=== PATIENT | male | born 1980 ===

== ENCOUNTER 2016-04-23 07:01 | Emergency (ER) | payer BC ==
--- NOTE | 2016-04-23 07:20 | UC ---
Respiratory Complaint HPI - HPI Summary HPI Summary: cough x 10 days , + chest congestion , pnd, no fever, no chills - History of Current Complaint Chief Complaint: UCRespiratory Stated Complaint: CHEST CONGESTION Time Seen by Provider: 04/23/16 07:04 Hx Obtained From: Patient Onset/Duration: Gradual Onset Timing: Constant Severity Initially: Moderate Severity Currently: Moderate Character: Cough: Nonproductive Aggravating Factors: Exertion, Deep Breaths Alleviating Factors: Nothing Associated Signs And Symptoms: Positive: URI, Nasal Congestion. Negative: Dyspnea, Fever, Chills, Pleuritic Chest Pain, Wheezing, Hemoptysis, Dizziness, Calf Pain, Calf Swelling, Edema - Allergies/Home Medications Allergies/Adverse Reactions: Allergies Allergy/AdvReac Type Severity Reaction Status Date / Time No Known Allergies Allergy Verified 04/23/16 07:06 PMH/Surg Hx/FS Hx/Imm Hx Previously Healthy: Yes - Surgical History Surgical History: Yes Surgery Procedure, Year, and Place: HERNIA REPAIR, WISDOM TEETH EXTRACTED, COLONOSCOPY FOR RECTAL BLEEDING DX WITH HEMMORHOIDS AND GI PROBLEM 5 YEARS AGO - Family History Known Family History: Negative: Hypertension, Diabetes - Social History Alcohol Use: Rare Substance Use Type: None Smoking Status (MU): Former Smoker Type: Cigarettes When Did the Patient Quit Smoking/Using Tobacco: 10 YEARS AGO Review of Systems Constitutional: Negative Skin: Negative Eyes: Negative ENT: Nasal Discharge Respiratory: Cough Cardiovascular: Negative Gastrointestinal: Negative All Other Systems Reviewed And Are Negative: Yes Physical Exam Triage Information Reviewed: Yes Appearance: Well-Appearing, No Pain Distress, Well-Nourished Vital Signs: Initial Vital Signs Temp 98 F 04/23/16 07:07 Pulse 68 04/23/16 07:07 Resp 16 04/23/16 07:07 BP 113/74 04/23/16 07:07 Pulse Ox 98 04/23/16 07:07 Vital Signs Reviewed: Yes Eye Exam: Normal Eyes: Positive: Conjunctiva Clear ENT: Positive: Normal ENT inspection, Hearing grossly normal, Pharynx normal, Nasal congestion, Nasal drainage. Negative: Pharyngeal erythema Neck: Positive: Supple, Nontender, No Lymphadenopathy Respiratory Exam: Normal Respiratory: Positive: Chest non-tender, Lungs clear, Normal breath sounds Cardiovascular: Positive: RRR, No Murmur, Pulses Normal Skin Exam: Normal UC Diagnostic Evaluation - Laboratory O2 Sat by Pulse Oximetry: 98 Respiratory Course/Dx - Differential Dx/Diagnosis Provider Diagnoses: URI Discharge - Discharge Plan Condition: Stable Disposition: HOME Patient Education Materials: Upper Respiratory Infection (ED) Referrals: No Primary Care Phys,NOPCP [Primary Care Provider] - If Needed
[2016-04-23 07:23] VITALS: BP 113/74
== END 2016-04-23 07:28 | disposition home or self-care (01) ==
LOC: UCCORT 07:01
DX: J06.9 Acute upper respiratory infection, unspecified (principal); Z87.891 Personal history of nicotine dependence
CPT/HCPCS: 99211; G0463

== ENCOUNTER 2016-05-05 20:51 | Emergency (ER) | payer BC ==
[2016-05-05 21:37] VITALS: BP 125/69
[2016-05-05] MEDS ORDERED: ceFUROXime TAB(*) 250 MG PO ONE (21:58)
--- NOTE | 2016-05-05 22:04 | UC ---
Throat Pain/Nasal Paxton HPI - HPI Summary HPI Summary: This is an otherwise healthy 36 yo male who presents with a 2-3 week h/o of congestion with a new onset of ST that started ~3-4 days ago. Associated cough and occasional SOB. No fevers measured but frequently chilled. No facial pain. Some occasional feelings of vertigo. - History of Current Complaint Chief Complaint: UCGeneralIllness Stated Complaint: COUGH/SORE THROAT - Allergies/Home Medications Allergies/Adverse Reactions: Allergies Allergy/AdvReac Type Severity Reaction Status Date / Time No Known Allergies Allergy Verified 05/05/16 21:37 Home Medications: Home Medications Phenylephrine-Diphenhydramine- [MUCINEX FAST-MAX DAY/NIGH (Tablet)] 1,200 mg PO ONCE PRN 05/05/16 [History Confirmed 05/05/16] [id number] W/ APAP [Mucinex Sinus-Max Severe 7-15-215-325 mg] 1 cap PO ONCE PRN 05/05/16 [History Confirmed 05/05/16] PMH/Surg Hx/FS Hx/Imm Hx Previously Healthy: Yes - Surgical History Surgical History: Yes Surgery Procedure, Year, and Place: HERNIA REPAIR, WISDOM TEETH EXTRACTED, COLONOSCOPY FOR RECTAL BLEEDING DX WITH HEMMORHOIDS AND GI PROBLEM 5 YEARS AGO - Family History Known Family History: Positive: Cardiac Disease, Diabetes Negative: Hypertension - Social History Alcohol Use: Rare Substance Use Type: None Smoking Status (MU): Former Smoker Type: Cigarettes Length of Time of Smoking/Using Tobacco: 6 YRS Have You Smoked in the Last Year: No When Did the Patient Quit Smoking/Using Tobacco: 2006 Review of Systems Constitutional: Chills Skin: Negative Eyes: Negative ENT: Sore Throat, Nasal Discharge Respiratory: Cough Cardiovascular: Negative Gastrointestinal: Negative Genitourinary: Negative Motor: Negative Neurovascular: Negative Musculoskeletal: Negative Neurological: Negative Psychological: Negative All Other Systems Reviewed And Are Negative: Yes Physical Exam Triage Information Reviewed: Yes Appearance: Well-Nourished Vital Signs: Initial Vital Signs Temp 98 F 05/05/16 21:29 Pulse 58 05/05/16 21:29 Resp 12 05/05/16 21:29 BP 125/69 05/05/16 21:29 Pulse Ox 99 05/05/16 21:29 Vital Signs Reviewed: Yes ENT: Positive: Pharyngeal erythema - mild, Nasal congestion, TM dull. Negative : TM bulging, Tonsillar swelling, Tonsillar exudate Dental Exam: Normal Neck: Positive: Supple, Nontender, No Lymphadenopathy Respiratory: Positive: Chest non-tender, Lungs clear. Negative: Crackles, Rhonchi, Wheezing Cardiovascular: Positive: RRR, No Murmur Abdomen Description: Positive: Nontender Throat Pain/Nasal Course/Dx - Course Course Of Treatment: This is an otherwise healthy 36 yo gentleman who presents with complaints of congestion for several weeks and recent onset of ST with chills and cough. Will treat for sinusitis and recommend 10 days of antibiotics and initiation of steroid nasal spray. - Differential Dx/Diagnosis Differential Diagnosis/HQI/PQRI: Laryngitis, Peritonsillar Abscess, Pharyngitis , Tonsillitis, URI Provider Diagnoses: Acute sinusitis Discharge - Discharge Plan Condition: Stable Disposition: HOME Prescriptions: Cefuroxime Axetil [Ceftin 500 MG TAB] 500 mg PO BID #20 tab Fluticasone NASAL SPRAY 50MCG* [Flonase NASAL SPRAY 50MCG*] 1 spray BOTH NARES BID #1 btl Patient Education Materials: Sinusitis (ED) Referrals: Mervin Machuca DO [Primary Care Provider] - Additional Instructions: Activity: No restrictions Instructions: 1. Take antibiotics as directed 2. Use Flonase nasal spray as directed 3. Use Sudafed during daytime hours for additional congestion relief
== END 2016-05-05 22:13 | disposition home or self-care (01) ==
LOC: UCCORT 20:51
DX: J01.90 Acute sinusitis, unspecified (principal); Z87.891 Personal history of nicotine dependence
CPT/HCPCS: 99212; G0463

== ENCOUNTER 2016-12-11 07:31 | Emergency (ER) | payer BC ==
[2016-12-11 07:40] VITALS: BP 125/78
--- NOTE | 2016-12-11 08:00 | UC ---
Respiratory Complaint HPI - HPI Summary HPI Summary: This started with congestion, sore throat and fever about 4-5 days ago. It has progressed to cough which is keeping him up at night. No fever. The cough is productive at times. Mucinex is helping. - History of Current Complaint Chief Complaint: UCRespiratory Stated Complaint: HEAD AND CHEST CONGESTION Time Seen by Provider: 12/11/16 07:46 Hx Obtained From: Patient Onset/Duration: Gradual Onset, Lasting Days Timing: Constant Severity Initially: Moderate Severity Currently: Moderate Character: Cough: Productive Aggravating Factors: Deep Breaths, Recumbent Position Alleviating Factors: OTC Meds Associated Signs And Symptoms: Positive: URI, Nasal Congestion. Negative: Wheezing, Hemoptysis, Dizziness, Calf Pain, Calf Swelling - Allergies/Home Medications Allergies/Adverse Reactions: Allergies Allergy/AdvReac Type Severity Reaction Status Date / Time No Known Allergies Allergy Verified 12/11/16 07:37 PMH/Surg Hx/FS Hx/Imm Hx Previously Healthy: Yes - Surgical History Surgical History: Yes Surgery Procedure, Year, and Place: HERNIA REPAIR, WISDOM TEETH EXTRACTED, COLONOSCOPY FOR RECTAL BLEEDING DX WITH HEMMORHOIDS AND GI PROBLEM 5 YEARS AGO - Family History Known Family History: Positive: Cardiac Disease, Diabetes Negative: Hypertension - Social History Occupation: Employed Full-time Lives: With Family Alcohol Use: Occasionally Substance Use Type: None Smoking Status (MU): Former Smoker Type: Cigarettes Length of Time of Smoking/Using Tobacco: 6 YRS Have You Smoked in the Last Year: No When Did the Patient Quit Smoking/Using Tobacco: 2006 - Immunization History Most Recent Influenza Vaccination: Not the 2016/2017 Season Review of Systems Respiratory: Cough All Other Systems Reviewed And Are Negative: Yes Physical Exam Triage Information Reviewed: Yes Appearance: Well-Appearing, No Pain Distress, Well-Nourished Vital Signs: Initial Vital Signs Temp 98 F 12/11/16 07:36 Pulse 78 12/11/16 07:36 Resp 16 12/11/16 07:36 BP 125/78 12/11/16 07:36 Pulse Ox 99 12/11/16 07:36 Vital Signs Reviewed: Yes Eye Exam: Normal Eyes: Positive: Conjunctiva Clear ENT: Positive: Pharynx normal, Nasal congestion, TM bulging. Negative: Pharyngeal erythema, TM dull, TM red, Tonsillar swelling, Tonsillar exudate, Trismus Neck exam: Normal Neck: Positive: Supple, Nontender, No Lymphadenopathy Respiratory Exam: Normal Respiratory: Positive: Chest non-tender, Lungs clear, Normal breath sounds, No respiratory distress, No accessory muscle use. Negative: Respiratory distress Cardiovascular Exam: Normal Cardiovascular: Positive: RRR, No Murmur, Pulses Normal, Brisk Capillary Refill Abdominal Exam: Normal Abdomen Description: Positive: Nontender, No Organomegaly Musculoskeletal: Positive: Strength Intact, ROM Intact, No Edema Neurological: Positive: Alert, Muscle Tone Normal, Fatigued Skin: Negative: rashes UC Diagnostic Evaluation - Laboratory O2 Sat by Pulse Oximetry: 99 Respiratory Course/Dx - Differential Dx/Diagnosis Provider Diagnoses: chest cold. uri Discharge - Discharge Plan Condition: Good Disposition: HOME Prescriptions: Acetaminop/Codeine 30 MG TAB* [Tylenol/Codeine 30 MG TAB*] 1 tab PO Q8H PRN #10 tab MDD 2 PRN Reason: Cough Azithromyxin RADHA (NF) [Z-Radha (Zithromax) 250 mg tabs #6] 2 tab PO .TODAY, THEN 1 DAILY #6 tab Patient Education Materials: Upper Respiratory Infection (ED) Referrals: Mervin Machuca DO [Primary Care Provider] - If Needed
== END 2016-12-11 08:02 | disposition home or self-care (01) ==
LOC: UCCORT 07:31
DX: J06.9 Acute upper respiratory infection, unspecified (principal); Z87.891 Personal history of nicotine dependence
CPT/HCPCS: 99212; G0463

== ENCOUNTER 2017-05-18 21:27 | Emergency (ER) | payer BC ==
--- NOTE | 2017-05-18 21:47 | UC ---
Respiratory Complaint HPI - HPI Summary HPI Summary: 37 year old male with cough for 2 weeks. Was getting better last week and now worsening. To go to [place] in 1 week and wants to make sure he is not going to get worse. Has had productive cough throughout the day . No wheeze. No fever. No SOB. Some sinus pressure at times. No chest pain or pressure. - History of Current Complaint Stated Complaint: COUGH/CONGESTION Time Seen by Provider: 05/18/17 21:36 Hx Obtained From: Patient Onset/Duration: Gradual Onset Severity Initially: Mild Severity Currently: Moderate Character: Cough: Productive - Allergies/Home Medications Allergies/Adverse Reactions: Allergies Allergy/AdvReac Type Severity Reaction Status Date / Time No Known Allergies Allergy Verified 05/18/17 21:46 Home Medications: Home Medications GuaiFENesin DM* [Robitussin DM*] 5 ml PO Q6H PRN 05/18/17 [History Confirmed 06/30] Guaifenesin/Dextromethorphan [Mucinex Dm ER 600-30 mg Tablet] 1 each PO Q12H PRN 05/18/17 [History Confirmed 05/18/17] PMH/Surg Hx/FS Hx/Imm Hx Previously Healthy: Yes - Surgical History Surgical History: Yes Surgery Procedure, Year, and Place: HERNIA REPAIR, WISDOM TEETH EXTRACTED, COLONOSCOPY FOR RECTAL BLEEDING DX WITH HEMMORHOIDS AND GI PROBLEM 5 YEARS AGO - Family History Known Family History: Positive: Cardiac Disease, Diabetes Negative: Hypertension - Social History Occupation: Employed Full-time Lives: With Family Alcohol Use: Occasionally Substance Use Type: None Smoking Status (MU): Former Smoker Type: Cigarettes Length of Time of Smoking/Using Tobacco: 6 YRS Have You Smoked in the Last Year: No When Did the Patient Quit Smoking/Using Tobacco: 2006 - Immunization History Most Recent Influenza Vaccination: Not the 2017/2017 Season Review of Systems Constitutional: Fatigue ENT: Nasal Discharge, Sinus Congestion Respiratory: Cough Is Patient Immunocompromised?: No All Other Systems Reviewed And Are Negative: Yes Physical Exam Triage Information Reviewed: Yes Appearance: Well-Appearing, No Pain Distress, Well-Nourished Vital Signs Reviewed: Yes Eye Exam: Normal ENT Exam: Normal ENT: Positive: TM dull - right Dental Exam: Normal Neck exam: Normal Neck: Positive: 1 Respiratory Exam: Normal Cardiovascular Exam: Normal Musculoskeletal Exam: Normal Neurological Exam: Normal Psychological Exam: Normal Skin Exam: Normal Respiratory Course/Dx - Course Course Of Treatment: Supportive treatment at this time with flonase, Claritin D , cough suppresant and if symptoms worsen over the next 48-72 hours then start the antibiotics. - Differential Dx/Diagnosis Differential Diagnosis/HQI/PQRI: Bronchitis, Lower Resp Infection, Sinusitis Provider Diagnoses: URI Discharge - Sign-Out/Discharge Documenting (check all that apply): Discharge - Discharge Plan Condition: Good Disposition: HOME Prescriptions: Amoxicillin/Clavulanate TAB* [Augmentin TAB 875*] 875 mg PO BID 10 Days #20 tab Benzonatate CAP* [Tessalon 100 MG CAP*] 100 mg PO TID #20 cap Patient Education Materials: Upper Respiratory Infection (ED) Referrals: Mervin Machuca DO [Primary Care Provider] - 4 Days (if not better) Additional Instructions: At this time it appears you have a viral infection. Supportive treatment at this time will be advised with flonase, Claritin D, cough suppressant and if symptoms worsen over the next 48-72 hours then start the antibiotics. - Billing Disposition and Condition Condition: GOOD Disposition: HOME
[2017-05-18 21:51] VITALS: BP 130/82
== END 2017-05-18 21:55 | disposition home or self-care (01) ==
LOC: UCCORT 21:27
DX: J06.9 Acute upper respiratory infection, unspecified (principal); Z87.891 Personal history of nicotine dependence
CPT/HCPCS: 99212; G0463

== ENCOUNTER 2018-05-17 20:01 | Emergency (ER) | payer BC ==
[2018-05-17] MEDS ORDERED: Amoxicillin PO (*) 500 MG CAP PO ONE (20:21)
[2018-05-17 20:23] VITALS: BP 121/73
--- NOTE | 2018-05-17 20:31 | UC ---
Throat Pain/Nasal Paxton HPI - HPI Summary HPI Summary: patients son was positive for strep 4 days ago, patient has developed a sore throat, fever, upset stomach and headache. - History of Current Complaint Chief Complaint: UCRespiratory Stated Complaint: FEVER,ST,STOMACH ACHE,DIARRHEA Time Seen by Provider: 05/17/18 20:20 Hx Obtained From: Patient Onset/Duration: Sudden Onset, Lasting Days Severity: Moderate Pain Intensity: 5 Associated Signs & Symptoms: Positive: Dysphagia, Fever - Allergies/Home Medications Allergies/Adverse Reactions: Allergies Allergy/AdvReac Type Severity Reaction Status Date / Time No Known Allergies Allergy Verified 05/17/18 20:19 PMH/Surg Hx/FS Hx/Imm Hx Previously Healthy: Yes - Surgical History Surgical History: Yes Surgery Procedure, Year, and Place: HERNIA REPAIR, WISDOM TEETH EXTRACTED, COLONOSCOPY FOR RECTAL BLEEDING DX WITH HEMMORHOIDS AND GI PROBLEM 5 YEARS AGO. VASECTOMY - Family History Known Family History: Positive: Cardiac Disease, Diabetes Negative: Hypertension - Social History Alcohol Use: Occasionally Substance Use Type: None Smoking Status (MU): Former Smoker Type: Cigarettes Length of Time of Smoking/Using Tobacco: 6 YRS Have You Smoked in the Last Year: No When Did the Patient Quit Smoking/Using Tobacco: 2006 - Immunization History Most Recent Influenza Vaccination: Not the 2016/2017 Season Review of Systems All Other Systems Reviewed And Are Negative: Yes Constitutional: Positive: Fever Skin: Positive: Negative Eyes: Positive: Negative ENT: Positive: Sore Throat Respiratory: Positive: Cough Cardiovascular: Positive: Negative Gastrointestinal: Positive: Nausea Genitourinary: Positive: Negative Motor: Positive: Negative Neurovascular: Positive: Negative Musculoskeletal: Positive: Negative Neurological: Positive: Headache Psychological: Positive: Negative Is Patient Immunocompromised?: No Physical Exam Triage Information Reviewed: Yes Appearance: Well-Nourished, Ill-Appearing, Pain Distress Vital Signs: Initial Vital Signs Temp 98.4 F 05/17/18 20:19 Pulse 76 05/17/18 20:19 Resp 16 05/17/18 20:19 BP 121/73 05/17/18 20:19 Pulse Ox 99 05/17/18 20:19 Vital Signs Reviewed: Yes Eye Exam: Normal ENT: Positive: Pharyngeal erythema, Tonsillar swelling Dental Exam: Normal Neck exam: Normal Neck: Positive: Supple, Nontender, No Lymphadenopathy Respiratory Exam: Normal Respiratory: Positive: Chest non-tender, Lungs clear, Normal breath sounds Cardiovascular Exam: Normal Cardiovascular: Positive: RRR, No Murmur, Pulses Normal Abdominal Exam: Normal Abdomen Description: Positive: Nontender, No Organomegaly, Soft Musculoskeletal Exam: Normal Neurological Exam: Normal Psychological Exam: Normal Skin Exam: Normal Throat Pain/Nasal Course/Dx - Course Course Of Treatment: hx obtained, exam performed ,meds reviewed, treated for strep based on clinical presentation and exposure. - Differential Dx/Diagnosis Differential Diagnosis/HQI/PQRI: Influenza, Laryngitis, Pharyngitis, Sinusitis, URI Provider Diagnosis: Pharyngitis Discharge - Sign-Out/Discharge Documenting (check all that apply): Patient Departure All imaging exams completed and their final reports reviewed: No Studies - Discharge Plan Condition: Stable Disposition: HOME Prescriptions: Amoxicillin PO (*) [Amoxicillin 500 MG CAP*] 500 mg PO Q12H #20 cap Patient Education Materials: Pharyngitis (ED) Referrals: Mervin Machuca DO [Primary Care Provider] - Additional Instructions: 1. take the medication as prescribed. 2. increas fluids and get plenty of rest. - Billing Disposition and Condition Condition: STABLE Disposition: Home
== END 2018-05-17 20:28 | disposition home or self-care (01) ==
LOC: UCCORT 20:01
DX: J02.9 Acute pharyngitis, unspecified (principal); Z87.891 Personal history of nicotine dependence
CPT/HCPCS: 99212; A9270-GY; G0463

== ENCOUNTER 2018-06-30 20:59 | Emergency (ER) | payer BC ==
[2018-06-30 21:13] VITALS: BP 124/75
[2018-06-30] MEDS ORDERED: Benzonatate CAP* 100 MG PO ONE (21:21)
[2018-06-30] MEDS ORDERED: Azithromycin TAB* 250 MG PO ONE (21:21)
--- NOTE | 2018-06-30 21:26 | UC ---
FLU HPI - HPI Summary HPI Summary: 38-year-old male presents with 2 week history of nasal congestion, sinus pressure, sore throat, and a productive cough. States that his symptoms were improving slightly over the last 5 days have progressively worsened again. Associated with some mild shortness of breath and "chest burning" with coughing. Denies fever, chills, ear pain, dysphagia, nausea, or vomiting. - History of Current Complaint Chief Complaint: UCGeneralIllness Stated Complaint: COUGH,ST Time Seen by Provider: 06/30/18 21:14 Hx Obtained From: Patient Pain Intensity: 3 - Allergy/Home Medications Allergies/Adverse Reactions: Allergies Allergy/AdvReac Type Severity Reaction Status Date / Time No Known Allergies Allergy Verified 06/30/18 21:13 PMH/Surg Hx/FS Hx/Imm Hx Previously Healthy: Yes - Denies significant PMH - Surgical History Surgical History: Yes Surgery Procedure, Year, and Place: HERNIA REPAIR, WISDOM TEETH EXTRACTED, COLONOSCOPY FOR RECTAL BLEEDING DX WITH HEMMORHOIDS AND GI PROBLEM 5 YEARS AGO. VASECTOMY - Family History Known Family History: Positive: Cardiac Disease, Diabetes Negative: Hypertension - Social History Occupation: Employed Full-time Lives: With Family Alcohol Use: Occasionally Substance Use Type: None Smoking Status (MU): Former Smoker Type: Cigarettes Length of Time of Smoking/Using Tobacco: 6 YRS Have You Smoked in the Last Year: No When Did the Patient Quit Smoking/Using Tobacco: 2006 - Immunization History Most Recent Influenza Vaccination: Not the 2017/2017 Season Review of Systems All Other Systems Reviewed And Are Negative: Yes Constitutional: Negative: Fever, Chills Skin: Negative: Rash Eyes: Negative: Drainage, Eye Redness ENT: Positive: Sore Throat, Nasal Discharge, Sinus Congestion, Sinus Pain/ Tenderness. Negative: Ear Ache Respiratory: Positive: Shortness Of Breath, Cough Cardiovascular: Negative: Palpitations, Chest Pain Gastrointestinal: Negative: Abdominal Pain, Vomiting, Diarrhea, Nausea Genitourinary: Positive: Negative Musculoskeletal: Positive: Negative Neurological: Positive: Negative Is Patient Immunocompromised?: No Physical Exam - Summary Physical Exam Summary: GENERAL APPEARANCE: Well developed, well nourished, alert and cooperative, and appears to be in no acute distress. EYES: Conjunctiva clear. No drainage. EARS: External auditory canals and tympanic membranes clear, hearing grossly intact. NOSE: Mild-moderate nasal congestion. THROAT: Pharyngeal cobblestoning. No tonsilar inflammation, swelling, exudate, or lesions. Uvula midline. Oral cavity normal. Teeth and gingiva in good general condition. NECK: Neck supple, non-tender without lymphadenopathy. CARDIAC: Normal S1 and S2. No S3, S4 or murmurs. Rhythm is regular. There is no peripheral edema, cyanosis or pallor. Extremities are warm and well perfused. Capillary refill is less than 2 seconds. Peripheral pulses intact. LUNGS: Clear to auscultation without rales, rhonchi, wheezing or diminished breath sounds. Harsh, non-productive cough. ABDOMEN: Positive bowel sounds. Soft, nondistended, nontender. No guarding or rebound. No masses or hepatosplenomegally. MUSKULOSKELETAL: ROM intact to all extremities. No joint erythema or tenderness. Normal muscular development. Normal gait. SKIN: Skin normal color, texture and turgor with no lesions or eruptions. Triage Information Reviewed: Yes Vital Signs: Initial Vital Signs Temp 99.1 F 06/30/18 21:09 Pulse 81 06/30/18 21:09 Resp 16 06/30/18 21:09 BP 124/75 06/30/18 21:09 Pulse Ox 99 06/30/18 21:09 Vital Signs Reviewed: Yes Flu Course/Dx - Course Course Of Treatment: 38-year-old male presents with 2 week history of nasal congestion, sinus pressure, sore throat, and a productive cough. States that his symptoms were improving slightly over the last 5 days have progressively worsened again. Associated with some mild shortness of breath and "chest burning" with coughing. Denies fever, chills, ear pain, dysphagia, nausea, or vomiting. Afebrile. Vital signs stable. Exam reveals mild-moderate nasal congestion, pharyngeal cobblestoning, clear bilateral breath sounds, and a harsh, nonproductive cough. Considering the duration and worsening of his symptoms will treat with a course of azithromycin and recommend symptomatic treatment including Tessalon Perles one capsule every 8 hours as needed for cough. He was given first doses of each of these medications in the clinic. He is to follow-up with primary care provider in 3-5 days if symptoms are not improving. Anticipatory guidance and warning symptoms were reviewed with the patient. Verbalizes understanding and agrees with plan of care. - Differential Dx/Diagnosis Differential Diagnosis/HQI/PQRI: Bronchitis, Influenza, Pneumonia, Upper Respiratory Infection Provider Diagnosis: URI with cough and congestion Discharge - Sign-Out/Discharge Documenting (check all that apply): Patient Departure All imaging exams completed and their final reports reviewed: No Studies - Discharge Plan Condition: Stable Disposition: HOME Prescriptions: Azithromycin 250 mg PO DAILY #4 tablet Benzonatate CAP* [Tessalon 100 MG CAP*] 100 mg PO TID PRN #21 cap PRN Reason: Cough Patient Education Materials: Upper Respiratory Infection (ED) Referrals: Mervin Machuca DO [Primary Care Provider] - 3 Days Additional Instructions: Your symptoms are consistent with a upper respiratory infection. Considering the duration and worsening of your symptoms we will treat you with an antibiotic. Start azithromycin 1 tablet daily for 4 days starting tomorrow. You were given the first dose in the clinic. Get plenty of rest. Drink plenty of fluids. Take over the counter acetaminophen (Tylenol) or ibuprofen (Advil, Motrin) according to directions as needed for pain or fever. Use an over the counter decongestant such as Sudafed according to directions as needed for congestion. Take Tessalon Perles 1 cap every 8 hours as needed for cough. Your were given a dose in the clinic and sent home with one cap for in the morning. Use salt water gargles several times a day if you have a sore throat. You may also use Chloraseptic spray or Cepacol lonzenges according to directions which contain a numbing medication and can provide some temporary relief from your sore throat. Follow up with your primary care provider in 3-5 days if symptoms persist. Seek immediate medical attention in the emergency room if you have fever greater than 100.5 F despite taking acetaminophen or ibuprofen, have chest pain , difficulty breathing, are unable to swallow, or have any worsening of symptoms. - Billing Disposition and Condition Condition: STABLE Disposition: Home
== END 2018-06-30 21:50 | disposition home or self-care (01) ==
LOC: UCCORT 20:59
DX: J06.9 Acute upper respiratory infection, unspecified (principal); R05 Cough; R09.81 Nasal congestion; Z87.891 Personal history of nicotine dependence
CPT/HCPCS: 99212; A9270-GY; G0463

== ENCOUNTER 2018-07-24 21:34 | Emergency (ER) | payer BC ==
--- OUTSIDE RECORDS SUMMARY | 2018-07-24 21:39 | XMS REPORT | Continuity of Care Document ---
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 Unavailable Payers Date Identification Numbers Payment Provider Subscriber Effective: 2015 Policy Number: [id number] [employer]osa PayID: [id number] [address] [place] [address] Problems Active Problems Provider Date Hemorrhoids without complication Mervin Machuca DO Onset: 08/14/2014 Family History Date Family Member(s) Observation Comments Father Heart Disease V tach Father Hypertension Father Hypercholesterolemia Mother Diabetes, Adult Mother Obesity First Sister V tach Paternal Grandfather Heart Disease Maternal Uncles Diabetes, Adult Maternal Uncles Obesity Paternal Aunts Cancer, Skin Paternal Aunts Obesity Social History Type Date Description Comments Sex Unknown Education Higest level completed, Bachelor's Degree Marital Status 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 [employer] Tobacco Use Start: Unknown End: Former Cigarette Smoker Unknown ETOH Use consumes 2-3 beers per week Recreational Drug Use Denies Drug Use Allergies, Adverse Reactions, Alerts Description No Known Drug Allergies Medications Active Medications SIG Qnty Indications Ordering Provider Date No Active Medications Unknown 03/27/2017 History Medications Oseltamivir Phosphate 1 by mouth 10caps B34.9 Mervin Machuca, 03/22/2017 - twice a day DO 03/27/2017 75mg Capsules No Active Medications Unknown 08/14/2014 - 03/22/2017 Immunizations CPT Code Status Date Vaccine Lot # [id number] Refused 12/18/2017 Afluria Imunization Vital Signs Date Vital Result Comment 07/11/2018 1:37pm Body Temperature 99.0 F Weight 228.00 lb Heart Rate 70 /min BP Systolic 138 mmHg BP Diastolic 84 mmHg Respiratory Rate 17 /min Height 71 inches 5'11" O2 % BldC Oximetry 98 % BMI (Body Mass Index) 31.8 kg/m2 12/18/2017 4:18pm Weight 221.00 lb Heart Rate 78 /min BP Systolic 112 mmHg BP Diastolic 74 mmHg Height 71 inches 5'11" (10/2015) BMI (Body Mass Index) 30.8 kg/m2 10/30/2017 4:05pm Weight 225.00 lb Heart Rate 80 /min BP Systolic 116 mmHg BP Diastolic 78 mmHg Respiratory Rate 16 /min Height 71 inches 5'11" (10/2015) BMI (Body Mass Index) 31.4 kg/m2 03/22/2017 9:42am Body Temperature 99.5 F Weight 229.00 lb Heart Rate 84 /min BP Systolic 132 mmHg BP Diastolic 92 mmHg Respiratory Rate 17 /min Height 71 inches 5'11" (10/2015) O2 % BldC Oximetry 98 % BMI (Body Mass Index) 31.9 kg/m2 10/15/2015 11:45am Weight 216.00 lb Heart Rate 74 /min BP Systolic 134 mmHg BP Diastolic 84 mmHg Respiratory Rate 17 /min Height 71 inches 5'11" (10/2015) BMI (Body Mass Index) 30.1 kg/m2 12/25/2014 1:00pm Weight 211.00 lb Heart Rate 62 /min BP Systolic 120 mmHg BP Diastolic 74 mmHg Respiratory Rate 18 /min Height 70.6 inches 5'10.60" 08/14/14 BMI (Body Mass Index) 29.8 kg/m2 11/17/2014 3:24pm Weight 214.00 lb Heart Rate 60 /min BP Systolic 100 mmHg BP Diastolic 68 mmHg Respiratory Rate 18 /min Height 70.6 inches 5'10.60" 08/14/14 BMI (Body Mass Index) 30.2 kg/m2 11/03/2014 11:03am Body Temperature 98.1 F Weight 211.00 lb Heart Rate 76 /min BP Systolic 140 mmHg BP Diastolic 80 mmHg Respiratory Rate 18 /min Height 70.6 inches 5'10.60" 08/14/14 O2 % BldC Oximetry 99 % Ra BMI (Body Mass Index) 29.8 kg/m2 08/14/2014 2:15pm Weight 205.00 lb Heart Rate 72 /min BP Systolic 126 mmHg BP Diastolic 74 mmHg Respiratory Rate 18 /min Height 70.6 inches 5'10.60" 08/14/14 BMI (Body Mass Index) 28.9 kg/m2 Results Test Date Facility Test Result H/L Range Note Laboratory test 07/11/2018 [facility] Throat Culture <pending> finding Laboratory test 12/19/2017 [facility] CRP 1.05 mg/dL High 0.00-0.75 finding (C-Reactive) CBC with Auto 12/19/2017 [facility] WBC 6.4 K/uL 4.1-11.0 Diff-fcmg RBC 4.84 M/uL 4.60-6.10 Hemoglobin 14.0 gm/dL 13.5-18.0 Hematocrit 40.9 % Low 41.0-53.0 MCV 84.3 fL 80.0-97.0 MCH 29.0 pg 27.0-32.0 MCHC 34.4 g/dL 32.0-36.0 RDW 12.9 % 11.5-14.5 PLT Count 261 K/ul 140-400 MPV 8.3 FL 7.1-10.7 Neutrophil 65.7 % 35.0-75.0 Lymphocyte 20.4 % 16.0-52.0 Monocyte 10.7 % High 2.0-10.0 Eosinophil 2.0 % 0.0-5.0 Basophil 1.2 % 0.0-4.0 Abs Neutrophils 4.2 K/uL 2.1-8.0 Abs Lymphocytes 1.3 K/uL 0.8-5.5 Abs Monocytes 0.7 K/uL 0.1-1.0 Abs Eosinophils 0.1 K/uL 0.0-0.5 Abs Basophils 0.1 K/uL 0.0-0.3 Laboratory test 12/18/2017 [facility] Cytology Fluid SEE NOTE 1, 2 finding Specimen Blood Culture 12/10/2017 [facility] Blood Culture NO GROWTH: 3, 4 (315)- - Aerobic FINAL <SEE NOTE> Blood Culture Anaerobic NO GROWTH: FINAL <SEE NOTE> 5 Laboratory test finding 12/10/2017 [facility] Lipase 107 U/L N 56-289 6 (315)- - Troponin-I < 0.015 ng/mL 7 CK 165 U/L N 39-308 C-Reactive Protein,Quant 159.0 mg/L High <3.0 Comprehensive Metabolic 12/10/2017 [facility] Glucose 136 mg/dL High 74-106 Panel (315)- - BUN 9 mg/dL N 7-18 Creatinine 1.2 mg/dL N 0.6-1.3 Glom Filtration Rate, Estimate >60 mL/min >60 If >60 mL/min >60 8 BUN/Creat 7.5 ratio Sodium 137 mmol/L N 136-145 Potassium 3.5 mmol/L N 3.5-5.1 Chloride 104 mmol/L N 98-107 Carbon Dioxide 24 mmol/L N 21-32 Anion Gap 9 mEq/L N 8-16 Calcium 8.6 mg/dL N 8.5-10.1 Total Protein 7.4 g/dL N 6.4-8.2 Albumin 3.8 g/dL N 3.4-5.0 Globulin 3.6 g/dL N 1.9-4.3 Alb/Glob 1.1 ratio Bilirubin,Total 1.1 mg/dL High 0.2-1.0 Sgot/Ast 19 U/L N 15-37 SGPT/Alt 26 U/L N 12-78 Alkaline Phosphatase 48 U/L N 45-117 Laboratory test 12/10/2017 [facility] Act Partial 35.3 seconds High 23.4-35.0 9 finding (315)- - Thrombo Time Sedimentation Rate 3 mm/hr N 0-15 10 Protime 12/10/2017 [facility] Protime 14.2 seconds N 12.0-14.4 (315)- - Inr 1.1 N 0.9-1.1 11 CBS W/Automated Diff 12/10/2017 [facility] White Blood 7.7 K/uL N 3.4-10.5 (315)- - Count Red Blood Count 5.02 M/uL N 4.20-5.80 Hemoglobin 15.0 gm/dL N 12.8-17.0 Hematocrit 42.3 % N 38.0-48.0 Mean Cell Volume 84.3 fl N 80.0-96.0 Mean Corpuscular HGB 29.9 pg N 27.0-33.0 Mean Corpuscular HGB Conc 35.5 g/dL N 31.7-36.0 Platelet Count 165 K/uL N 155-360 Red Cell Distri Width SD 38.4 fl N 36-51 Red Cell Distri Width %CV 12.6 % N 11.6-15.8 Mean Platelet Volume 10.2 fL N 6.6-10.6 Neut% 80.6 % High 33.0-73.0 Lymph % 8.9 % Low 20.0-42.0 [place] % 9.8 % N 0.0-10.0 Eo% 0.4 % N 0.0-6.6 Bas% 0.3 % N 0.0-1.1 Neut# 6.24 K/uL N 1.8-7.0 Lymph # 0.69 K/uL Low 1.0-4.0 [place] # 0.76 K/uL N 0.0-0.8 Eos # 0.03 K/uL N 0.0-0.5 Baso # 0.02 K/uL N 0.0-0.1 Lactic Acid 12/10/[address] [facility] Lactic Acid 1.5 mmol/L N 0.4-1.9 (315)- - Lab Reflex >2.0 for Sepsis? Y Blood Culture 12/10/[address] [facility] Blood Culture NO GROWTH: 12, 13 (315)- - Aerobic FINAL <SEE NOTE> Blood Culture Anaerobic NO GROWTH: FINAL <SEE NOTE> 14 Stool Culture 12/10/[address] [facility] Stool Culture NO ENTERIC PATHO 15 (315)- - <SEE NOTE> . ................ <SEE NOTE> 16 Note: INCLUDES TESTING <SEE NOTE> 17 . PLESIOMONAS, CAM <SEE NOTE> 18 . ................ <SEE NOTE> 19 . YERSINIA AND VIB <SEE NOTE> 20 . SHOULD BE REQUES <SEE NOTE> 21 Shiga Toxin 1 Antigen Test not perform <SEE NOTE> 22 Shiga Toxin 2 Antigen Test not perform <SEE NOTE> 23 Laboratory test 12/10/[address] [facility] Urine Culture NO GROWTH: 24 finding (315)- - FINAL <SEE NOTE> Urinalysis With 12/10/[address] [facility] Urine Color YELLOW Yellow 25 Microscopic (315)- - Urine Clarity CLEAR Clear Urine Glucose - Dipstick NEGATIVE mg/dL Negative Urine Bilirubin - Dipstick NEGATIVE Negative Urine Ketone TRACE mg/dL High Negative Urine Specific [place] 1.020 N 1.010-1.030 Urine Blood LARGE Abnormal Negative Urine PH 6.0 Low 6.5-7.5 Urine Protein - Dipstick 30 mg/dL High Negative Urine Urobilinogen - Dipstick 0.2 E.U./dL N 0.2-1.0 Urine Nitrite - Dipstick NEGATIVE Negative Urine Leuk Esterase NEGATIVE Negative Urine RBC 10-20 rbc/hpf High 0-2 Urine WBC NONE SEEN wbc/hpf 0-7 Urine Epithelial Cells FEW /lpf None Seen Urine Bacteria FEW None Seen Source: URINE, CLEAN CAT <SEE NOTE> 26 Laboratory test 12/10/2017 [facility] Occult NEGATIVE Negative 27 finding (315)- - Blood,Stool Influenza A/B 12/10/[address] [facility] Influenza A Negative (Negative) Antigen (315)- - Antigen Influenza B Antigen Negative (Negative) 28 Aot Request 12/10/[address] [facility] Aot Request Test(s) added 29 (315)- - Tests to be added: CPK Laboratory 12/10/2017 [facility] Malarial (SEE NOTE) [ None Seen] 30, 31 test finding (315)- - Smear Hepatitis 12/10/2017 [facility] Hepatitis A Negative Negative Evaluation (315)- - Antibody IgM HBsAg Screen [Ref Lab] Negative Negative Hepatitis B Core IgM Negative Negative HCV Signal/Cutoff ratio < 0.1 s/corat 0.0-0.9 32 Laboratory test 11/03/2014 [facility] Troponin-I < 0.015 33 finding (315)- - ng/mL Laboratory test 11/03/2014 [facility] D-Dimer, < 0.22 34 finding (315)- - Quantitative ug/mL Basic (BMP) 09/03/2014 [facility] Sodium 139 mmol/L 134-14 2 Potassium 4.5 mmol/L 3.5-5.2 Chloride 104 mmol/L 97-109 Carbon Dioxide 31 mmol/L 24-34 Glucose 88 mg/dL 70-105 BUN 14 mg/dL 6- Creatinine 1.0 mg/dL 0.5-1.4 Calcium 9.6 mg/dL 8.5-10.2 Anion Gap 9 mmol/L 6-14 Non Frida Egfr >60 >60 35 Frida Egfr >60 >60 36 Lipid Treatment 09/03/2014 [facility] Cholesterol 157 mg/dL 50-199 Triglycerides 90 mg/dL 30-200 HDL 36 mg/dL 29-71 37 Chol/ HDL Ratio 4.4 ratio 4.0-6.7 VLDL 18 mg/dL 2-29 LDL (Calc) 103 mg/dL High 20-99 38 Alt 15 U/L 3-42 Ast 13 U/L 8-42 CBC With Auto Diff 09/03/2014 [facility] WBC 4.8 K/uL 4.1-11.0 RBC 5.10 M/uL 4.60-6.10 Hemoglobin 15.3 gm/dL 13.5-18.0 Hematocrit 44.1 % 41.0-53.0 MCV 86.5 fL 80.0-97.0 MCH 30.0 pg 27.0-32.0 MCHC 34.6 g/dL 32.0-36.0 RDW 13.1 % 11.5-14.5 PLT Count 184 K/ul 140-400 Neutrophil 54.9 % 35.0-75.0 Lymphocyte 30.3 % 16.0-52.0 Monocyte 10.2 % High 2.0-10.0 Eosinophil 3.5 % 0.0-5.0 Basophil 1.1 % 0.0-4.0 Abs Neutrophils 2.6 K/uL 2.1-8.0 Abs Lymphocytes 1.4 K/uL 0.8-5.5 Abmon 0.5 K/uL 0.1-1.0 Abs Eosinophils 0.2 K/uL 0.0-0.5 Abs Basophils 0.1 K/uL 0.0-0.3 1 microscopic hematuria after viral infection 2 [facility]. [address] [place] [address] MISCELLANEOUS CYTOLOGY REPORT Source of Specimen(s): A: LBP Urine Clinical Diagnosis and History: R31.9, microscopic hematuria after viral infection Gross Description LBP Urine: 15 cc cloudy yellow fluid. Final Diagnosis Specimen Adequacy Satisfactory Final Diagnosis URINE: NEGATIVE FOR HIGH-GRADE UROTHELIAL CARCINOMA The specimen contains some urothelial cells and background squamous cells. As applicable, positive and negative controls for all immunohistochemical and/or special stains were reviewed and considered appropriate. Reported: 12/19/2017 14:28 Electronically Signed Out By Сергей Chacko MD [facility] [employer] [facility] Project Manager: Rubi White CT([facility]) [facility] ICD Code: R31.9 CPT Code: A: 55551P Unless otherwise specified, testing performed by [facility] [place] [facility] [address] [place] [id number] 3 FEVER, DIARRHEA, HEMTURIA 4 NO GROWTH: FINAL REPORT 5 NO GROWTH: FINAL REPORT 6 FLU LIKE SYMPTOMS, RECENT TRAVELING 7 0.0 - 0.045 ng/mL: Normal 0.046 - 0.5 ng/mL: Suggestive 0.6 - 1.5 ng/mL: Consistent 8 Note: Persistent reduction for 3 months or more in an eGFR <60 mL/min/1.73 m2 defines CKD. Patients with eGFR values >/=60 mL/min/1.73 m2 may also have CKD if evidence of persistent proteinuria is present. The original MDRD equation for estimated GFR is not valid for patients less than 18 years of age. Additional information may be found at www.kdoqi.org. 9 Is patient on anticoagulants? Coumadin 10 Method: Sediplast Modified Westergren 11 THERAPEUTIC INR RANGE: 2.0 - 3.0 DVT, Pulmonary embolus, prophylaxis against venous thrombosis or systemic embolization in high risk patients. 2.5 - 3.5 Mechanical heart valves 12 FEVER, DIARRHEA, HEMTURIA 13 NO GROWTH: FINAL REPORT 14 NO GROWTH: FINAL REPORT 15 NO ENTERIC PATHOGENS ISOLATED 16 ................................................... 17 INCLUDES TESTING FOR SALMONELLA, SHIGELLA, AEROMONAS, 18 PLESIOMONAS, CAMPYLOBACTER, AND E. COLI 0157:H7 19 ................................................... 20 YERSINIA AND VIBRIO ARE NOT ROUTINELY SCREENED FOR AND 21 SHOULD BE REQUESTED SEPARATELY 22 Test not performed INSUFFICENT GROWTH TO PERFORM TESTING 23 Test not performed INSUFFICENT GROWTH TO PERFORM TESTING 24 NO GROWTH: FINAL REPORT 25 FLU LIKE SYMPTOMS, RECENT TRAVELING 26 URINE, CLEAN CATCH 27 Method: Sony Leonie Hemoccult Card 28 Please Note: A POSITIVE result for influenza A and/or B antigen does not rule out a co-infection with other pathogens or identify any specific influenza A virus subtype. A NEGATIVE result for influenza A and/or B antigen does not preclude influenza virus infection and should not be the sole basis for treatment or other management decisions, since the antigen present in the specimen may be below the detection limit of the test. A NEGATIVE result is PRESUMPTIVE and it is recommended these results be confirmed by virus culture or an FDA-cleared influenza A and B molecular assay. Method: [employer] Chromatographic immunoassay 29 Tests: CPK Instructions: 30 FEVER, DIARRHEA, HEMTURIA 31 No Plasmodium, Babesia, or other blood parasites seen. One negative result does not rule out the possibility of a parasitic infestation. If protozoal, filarial, or trypanosomal infection is strongly suspected, test should be performed at least three times with samples obtained at different times in the fever cycle. Performed at: [facility] [employer] [id number] Software Systems Engineer: Shakila Coles MD, Phone: [phone] INFCE Result Units: s/co ratio Negative: < 0.8 Indeterminate: 0.8 - 0.9 Positive: > 0.9 The CDC recommends that a positive HCV antibody result be followed up with a HCV Nucleic Acid Amplification test (501832). Performed at: [facility] [email or web address] [id number] Software Systems Engineer: Shakila Coles MD, Phone: [phone] 0.0 - 0.045 ng/mL: Normal 0.046 - 0.5 ng/mL: Suggestive 0.6 - 1.5 ng/mL: Consistent 34 <=0.49 ug/mL - Low likelihood of DIC, DVT or Pulmonary Embolism >0.49 ug/mL - Additional testing should be done to rule out DIC, DVT, or Pulmonary embolism as clinically indicated. ([facility] has established a 97.89% negative predictive value for thrombotic disease when a cutoff value of 0.5 ug/mL is used.) 35 Concerning GFR Guidelines: Normal function or mild renal disease, if clinically at risk: >/=60 mL/min Moderately decreased: 30-59 Severely decreased: 15-29 Renal failure: <15 Glomerular Filtration Rate (GFR) is estimated based on the MDRD equation, which assumes a steady state for creatinine as recommended by the National Kidney Disease Education Program in conjunction with the National Institutes of Health and the National Kidney Foundation. Clinical conditions in which it may be necessary to measure GFR by using clearance methods include extremes of age and body size, severe malnutrition or obesity, diseases of skeletal muscle, paraplegia or quadriplegia, vegetarian diet, rapidly changing kidney function, and calculation of the dose of potentially toxic drugs that are excreted by the kidneys. 36 Concerning GFR Guidelines for Americans: Normal function or mild renal disease, if clinically at risk: >/=60 mL/min Moderately decreased: 30-59 Severely decreased: 15-29 Renal failure: <15 37 Per NCEP ATP III Guidelines: Results lower than 40 mg/dL are suggestive of increased risk for coronary artery disease. Results > or=to 60 mg/dL are considered a negative risk factor. 38 Per NCEP ATP III Guidelines: Normal Population <130 Patients with medical conditions: CHD/DM Optimal: <100 Borderline high: 130-159 High: 160-189 Very high: >189 Procedures Date Code Description Status 07/11/2018 46394 Measure Blood Oxygen Level Single Determination Completed 10/15/2015 93021 Screening Hearing Test Completed 11/03/2014 27754 Electrocardiogram Complete Completed 08/14/2014 42808 Visual Screening Test Completed 08/14/2014 41863 Electrocardiogram Complete Completed 08/14/2014 54080 Screening Hearing Test Completed Encounters Type Date Location Provider Dx Diagnosis Office Visit 12/18/2017 Mervin Aldana DO A09 Infectious 4:00p gastroenteritis and colitis, unspecified R31.9 Hematuria, unspecified R79.82 Elevated C-reactive protein (CRP) Z68.30 Body mass index (BMI) 30.0-30.9, adult Office Visit 10/30/2017 3:30p Mervin Aldana DO Z00.00 Encntr for general adult medical exam w/o abnormal findings Z30.2 Encounter for sterilization K59.00 Constipation, unspecified K64.9 Unspecified hemorrhoids Z82.49 Family hx of ischem heart dis and oth dis of the circ sys R91.1 Solitary pulmonary nodule Z83.3 Family history of diabetes mellitus Z68.31 Body mass index (BMI) 31.0-31.9, adult Office Visit 03/22/2017 9:45a [facility] Mervin Machuca DO B34.9 Viral infection, unspecified Office Visit 10/15/2015 11:15a [facility] Mervin Machuca DO Z00.00 Encntr for general adult medical exam w/o abnormal findings I78.1 Nevus, non-neoplastic R10.11 RIGHT upper quadrant pain K59.00 Constipation, unspecified R91.1 Solitary pulmonary nodule Z82.49 Family hx of ischem heart dis and oth dis of the circ sys K64.9 Unspecified hemorrhoids Z83.3 Family history of diabetes mellitus Office Visit 12/25/2014 1:00p [facility] Mervin Machuca DO 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, unspecified R06.02 Shortness of breath R91.1 Solitary pulmonary nodule K21.9 Gastro-esophageal reflux disease without esophagitis F43.0 Acute stress reaction Office Visit 11/17/2014 3:00p [facility] Mervin Machuca DO 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, unspecified R06.02 Shortness of breath R91.1 Solitary pulmonary nodule F43.0 Acute stress reaction Office Visit 11/03/2014 11:00a [facility] [employer], 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, 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 R06.02 Shortness of breath Office Visit 08/14/2014 2:00p [facility] Mervin Machuca DO V70.0 Exam (Adult) General Medical Routine AT Health Care Facility 793.11 Solitary Pulmonary Nodule 455.6 Hemorrhoids Unspec W/O Complication 564.00 Constipation Unspecified V17.3 History Family Ischemic Heart Disease V18.0 History Family Diabetes Mellitus V77.91 Screening For Lipoid Disorders Plan of Treatment Future Appointment(s):11/01/2018 9:00 am - Mervin Machuca DO at [facility]07/11/2018 - Mervin Machuca DOJ06.9 Acute upper respiratory infection, unspecifiedFollow up:The patient will follow up as scheduled.E66.9 Obesity, unspecifiedComments: The patient had gained around 7lbs of body weight since the previous visit and he currently weighs around 228lbs. A detailed discussion was had with the patient regarding his body weight and BMI. He was made aware about the health hazards of obesity including diabetes, hypertension, cardiac diseases, and other various risk factors. He was advised to maintain a healthy and low- calorie diet and a regular exercise regimen which will help him lose weight.R10.31 RIGHT lower quadrant painZ68.31 Body mass index (BMI) 31.0-31.9, adultComments:The patient's BMI is at 31.8. The patient was strongly encouraged to lose weight with low-calorie diet and exercises. We will continue to monitor his weight and BMI periodically.
--- NOTE | 2018-07-24 21:46 | UC ---
Abdominal Pain Male HPI - HPI Summary HPI Summary: Patient is a 38-year-old male with a history of anxiety. Patient states since Monday he's had left substernal chest pressure that radiates intermittently to his left shoulder and left arm. Patient states he sometimes is short of breath with it. No diaphoresis. Patient states intermittently when he belches it improves. Patient has not taken anything for pain. Patient states the pain is been present since Monday but waxes and wanes. Patient states earlier today to see much better. As night wore on it seemed to get worse. Patient denies any weakness of his arms. No fevers or chills. No cough. Patient's mother had an DC in her 50s. Sister and father have h/o Vtach Patient does not smoke. Patient states he had cardiac workup 4 years ago that was negative. Patient does not have a history of hypertension but does not know his cholesterol level is. no ilicit substances. He doesn't smoke tobacco. Patient's medications reviewed this visit. MEdications reviewed this visit - History of Current Complaint Stated Complaint: CHEST DISCOMFORT Time Seen by Provider: 07/24/18 21:46 Hx Obtained From: Patient Severity Initially: Mild Severity Currently: Mild Pain Scale Used: 0-10 Numeric - Allergies/Home Medications Allergies/Adverse Reactions: Allergies Allergy/AdvReac Type Severity Reaction Status Date / Time No Known Allergies Allergy Verified 07/24/18 21:41 Home Medications: Home Medications NK [No Home Medications Reported] 07/24/18 [History Confirmed 07/24/18] PMH/Surg Hx/FS Hx/Imm Hx Previously Healthy: Yes Psychological History: Anxiety - Surgical History Surgical History: Yes Surgery Procedure, Year, and Place: HERNIA REPAIR, WISDOM TEETH EXTRACTED, COLONOSCOPY FOR RECTAL BLEEDING DX WITH HEMMORHOIDS AND GI PROBLEM 5 YEARS AGO. VASECTOMY - Family History Known Family History: Positive: Cardiac Disease, Diabetes Negative: Hypertension - Social History Occupation: Employed Full-time Lives: With Family Alcohol Use: Occasionally Substance Use Type: None Smoking Status (MU): Former Smoker Type: Cigarettes Length of Time of Smoking/Using Tobacco: 6 YRS Have You Smoked in the Last Year: No When Did the Patient Quit Smoking/Using Tobacco: 2006 - Immunization History Most Recent Influenza Vaccination: Not the 2016/2017 Season Review of Systems All Other Systems Reviewed And Are Negative: Yes Constitutional: Positive: Negative Skin: Positive: Negative Eyes: Positive: Negative Respiratory: Positive: Shortness Of Breath Cardiovascular: Positive: Chest Pain Gastrointestinal: Positive: Negative Is Patient Immunocompromised?: No Physical Exam - Summary Physical Exam Summary: Vital Signs Reviewed: Yes A+Ox3, no distress Eyes: Conjunctiva Clear, PAZ. EOM intact and full ENT: Hearing grossly normal TM x 2 clear, mmoist, uvula midline, no exudate, no erythema Neck: Positive: Supple Respiratory: Positive: No respiratory distress, No accessory muscle use + CTA throughout no w/r Cardiovascular: RRR nl s1, s2 no m/r CBT <2 sec, no reproducible chest pain abd soft + BS nt/nd no guarding, no distension Musculoskeletal Exam: SOLOMON x 4 without difficulty Strength Intact, ROM Intact Neurological: Positive: Alert, + sensation throughout Psychological: Positive: Normal Response To Family Skin: Positive: no rash, no ecchymosis Triage Information Reviewed: Yes Diagnostics - EKG Cardiac Rate: NL Cardiac Rhythm: Sinus: Normal Ectopy: PVCs - x1 ST Segment: Normal Abd Pain Male Course/Dx - Course Course Of Treatment: Patient presents to urgent care reporting 2 days of intermittent chest pressure. Patient with radiation to his arm and mild tenderness of breath. Patient states it was better today but got worse tonight. Patient currently rates it about a 4 out of 10. Patient has not taken anything for pain. On exam vital signs are stable. Patient with a nonfocal exam pain. Patient EKG does not show an acute ST elevation. Discussed with patient risks factors and concern for cardiac evaluation. Patient drove himself to urgent care. Recommend aspirin IV and transferred to Hospital. Patient requesting [facility]. Patient denied ambience. Patient after discussion agreed to the hospital continues to refuse EMS. Discussed with patient concern for driving with potential cardiac condition. Patient continues to be adamant. Patient be signed out with risk factors that include but aren't limited to, denies DC, or discomfort. Patient to call 911 if symptoms change. Patient was given aspirin prior to arrival. Nursing present bedside throughout conversation. Patient understands risks and alternate care plan - Differential Dx/Clinical Impression Provider Diagnosis: Chest pain Discharge - Sign-Out/Discharge Documenting (check all that apply): Patient Departure All imaging exams completed and their final reports reviewed: No Studies - Discharge Plan Condition: Stable Disposition: AGAINST MEDICAL ADVICE Patient Education Materials: Chest Pain (ED) Referrals: Mervin Machuca DO [Primary Care Provider] - Additional Instructions: The doctor that evaluated you today thinks that you need additional testing that can be completed the emergency department. It is recommended that you go directly to emergency department for further evaluation. This evaluation may include blood work or imaging. This testing will be directed and decided by the provider that evaluate you at the emergency department. If pain becomes worse, you feel lightheaded, you have uncontrolled vomiting, or you have any other concerns while you are being driven to emergency department as recommended to pullover and contact 911. - Billing Disposition and Condition Condition: STABLE Disposition: Against Medical Advice
[2018-07-24 21:48] VITALS: BP 133/75
[2018-07-24] MEDS ORDERED: Aspirin 81 mg CHEW TAB* 81 MG TAB.CHEW PO ONE (22:02)
== END 2018-07-24 22:16 | disposition left against medical advice (07) ==
LOC: UCCORT 21:34
DX: 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, unspecified (principal); Z87.891 Personal history of nicotine dependence
CPT/HCPCS: 93005; 99212; A9270-GY; G0463